=== PATIENT | female | born 1995 | race Caucasian/White ===

== ENCOUNTER 2020-06-21 20:51 | Emergency (ER) | payer OTHER ==
[~2020-06-21] VITALS: Ht 162.6 cm; Wt 113.4 kg
[~2020-06-21 20:51] MED LIST: AUGMENTIN 875875 M1 PO; CEFDINIR PO; CLARITIN10 MG PO; FLONASE; LORTABELXR PO; MEDROLDOSEPACK PO; NAPROSYN500 MG PO; NORCO 5-325 TA1 EACH PO
[2020-06-21] MEDS ORDERED: LORCET 5-325 M1 EACH PO (23:47)
[2020-06-22 00:02] VITALS: BP 138/90
== END 2020-06-22 00:05 | disposition home or self-care (01) ==
LOC: M.ERS 20:51
DX: S93.491A Sprain of other ligament of right ankle, initial encounter (principal); X50.1XXA Overexertion from prolonged static or awkward postures, initial encounter; Y92.89 Other specified places as the place of occurrence of the external cause; Y99.8 Other external cause status